=== PATIENT | male | born 1975 | race American Indian/Alaskan Native ===

== ENCOUNTER 2018-02-05 11:49 | Emergency (ER) | payer SELFPAY ==
[2018-02-05] MEDS ORDERED: XYLOCAINE 1% 20 mL ONE (12:41)
[2018-02-05] MEDS ORDERED: ADRENALIN ONE ×2 (12:41→12:44)
[2018-02-05] MEDS ORDERED: XYLOCAINE 1%/ EPI 1:100,000 INFILTRATI ONE (12:45)
[2018-02-05] MEDS ORDERED: NACL 0.9% 500 ML IR ONE (12:53)
[2018-02-05] MEDS ORDERED: BOOSTRIX IM ONE (13:25)
--- NOTE | 2018-02-05 13:26 | Emergency Department Report ---
HPI - General Chief Complaint: Extremity Injury, Lower Time Seen by Provider: 02/05/18 12:30 - HPI HPI: Room 17 The patient is a 42-year-old male presenting with a chief complaint of right leg pain/laceration. The patient states just prior to arrival to break up a table when it fell striking his right lower extremity: The skin avulsion to the anterior portion of the ankle. The patient states he was doing okay until he saw blood in his pharynx and tympanic in, the patient states he felt hot and then had a syncopal episode. Patient now complains of pain in the right leg only Location: Right lower extremity Duration: Just prior to arrival Quality: Pain Severity: Moderate Modifying factors: [see above] Context: [see above] Mode of transportation: [not driving] ED Past Medical Hx - Past Medical History Previous Medical History?: No - Surgical History Past Surgical History?: No Additional Surgical History: jaw surgery - Family History Family history: no significant - Social History Smoking Status: Current Every Day Smoker (1/ pack per day) Substance Use Type: Alcohol (occasional), Marijuana - Medications Home Medications: Home Medications Medication Instructions Recorded Confirmed Last Taken Type HYDROcodone/APAP 5-325 [Talcott 1 - 2 each PO Q6HR PRN #7 tablet 02/05/18 Unknown Rx 5/325] Ibuprofen [Motrin 800 MG tab] 800 mg PO Q8HR PRN #20 tablet 02/05/18 Unknown Rx ED Review of Systems ROS: Stated complaint: CUT (R) LEG Other details as noted in HPI Constitutional: no symptoms reported Eyes: denies: eye pain ENT: denies: throat pain Respiratory: no symptoms reported Cardiovascular: denies: chest pain Endocrine: no symptoms reported Gastrointestinal: denies: abdominal pain Genitourinary: denies: dysuria Musculoskeletal: myalgia Skin: other (right ankle laceration) Neurological: denies: headache Physical Exam - Physical Exam Vital Signs: Vital Signs 02/05/18 11:59 Temperature 97.3 F L Pulse Rate 92 H Respiratory 18 Rate Blood Pressure 128/74 O2 Sat by Pulse 100 Oximetry Physical Exam: GENERAL: The patient is well-developed well-nourished male sitting on stretcher not appearing to be in acute distress. [] HEENT: Normocephalic. Atraumatic. Extraocular motions are intact. Patient has moist mucous membranes. NECK: Supple. Trachea midline CHEST/LUNGS: Clear to auscultation. There is no respiratory distress noted. HEART/CARDIOVASCULAR: Regular. There is no tachycardia. There is no gallop rub or murmur. ABDOMEN: Abdomen is soft, nontender. Patient has normal bowel sounds. There is no abdominal distention. SKIN: There is no rash. There is no edema. There is no diaphoresis. There is an ~10 cm curvilinear avulsion laceration to the right ankle NEURO: The patient is awake, alert, and oriented. The patient is cooperative. The patient has normal speech MUSCULOSKELETAL: There is no limitation range of motion. ED Course Vital Signs 02/05/18 11:59 Temperature 97.3 F L Pulse Rate 92 H Respiratory 18 Rate Blood Pressure 128/74 O2 Sat by Pulse 100 Oximetry - Laceration /Wound Repair Right Leg Wound Location: lower extremity (right lower extremity) Wound Length (cm): 10 Wound's Depth, Shape: irregular Wound Explored: clean Irrigated w/ Saline (ccs): 500 Betadine Prep?: Yes Anesthesia: Lidocaine w/ Epi Volume Anesthetic (ccs): 10 Suture Size/Type: 4:0, nylon Number of Sutures: 13 Layer Closure?: No Sterile Dressing Applied?: Yes ED Medical Decision Making - Radiology Data Radiology results: image reviewed (right tib-fib x-ray) interpreted by me: Right tib-fib x-ray-no acute fracture, no foreign body - Differential Diagnosis leg laceration Critical care attestation.: If time is entered above; I have spent that time in minutes in the direct care of this critically ill patient, excluding procedure time. ED Disposition Clinical Impression: Leg laceration, Acute leg pain Disposition: - TO HOME OR SELFCARE Is pt being admited?: No Does the pt Need Aspirin: No Condition: Stable Instructions: Suture Care (ED), Laceration (ED) Additional Instructions: Your sutures need to be removed in 7-10 days. Return to the emergency department immediately should you develop worsening symptoms, fever, inability to tolerate food or liquid or any other concerns. Prescriptions: HYDROcodone/APAP 5-325 [[place]cott 5/325] 1 - 2 each PO Q6HR PRN #7 tablet PRN Reason: Pain Ibuprofen [Motrin 800 MG tab] 800 mg PO Q8HR PRN #20 tablet PRN Reason: Pain, Moderate (4-6) Referrals: PRIMARY CARE, [Primary Care Provider] - 7-10 days Time of Disposition: 13:29
[2018-02-05] MEDS ORDERED: TRIPLE ANTIBIOTIC TP ONE (13:38)
[2018-02-05 14:14] VITALS: BP 124/83
--- NOTE | 2018-02-05 16:10 | XRay Report ---
FINAL REPORT EXAM: XR TIBIA FIBULA 2V RT HISTORY: pain, laceration TECHNIQUE: Frontal and lateral views tibia and fibula Comparison: None FINDINGS: There is no evidence of fracture or subluxation. The soft tissues are notable for evidence of a soft tissue injury on the anterior aspect of the lower leg. There is no evidence of radiopaque foreign body. IMPRESSION: 1. Evidence of soft tissue injury without evidence of fracture, subluxation or radiopaque foreign body
== END 2018-02-05 14:14 | disposition home or self-care (01) ==
LOC: ED 11:49
DX: S81.811A Laceration without foreign body, right lower leg, initial encounter (principal); F17.200 Nicotine dependence, unspecified, uncomplicated; F12.10 Cannabis abuse, uncomplicated
CPT/HCPCS: 90471; 90715; 99283; A6250; J0171